=== PATIENT | female | born 1975 | race Caucasian/White ===

== ENCOUNTER → 2020-07-13 | Day surgery (SDC) | payer OTHER ==
--- NOTE | 2020-07-14 16:14 | PATH ---
Surgical Pathology Report [facility] Rec. #: [id number] /Age/Gender: 1975 (Age: 45) / F Account: [id number] Location: [facility] Taken: 07/13/2020 Received: 07/13/2020 Reported: 07/14/2020 Physicians: Reji Garcia M.D. Specimen(s) Received A: RIGHT BREAST WITH CALCIFICATIONS B: RIGHT BREAST WITHOUT CALCIFICATIONS Clinical History Non-palpable lesion Mammographic findings: Microcalcification, suspicious Final Diagnosis A. BREAST, RIGHT, WITH CALCIFICATIONS, STEREOTACTIC BIOPSY: DUCTAL CARCINOMA IN SITU (DCIS), PAPILLARY, MICROPAPILLARY AND FLAT TYPE, INTERMEDIATE NUCLEAR GRADE WITH MODERATE NECROSIS AND ASSOCIATED CALCIFICATIONS. B. BREAST, RIGHT, WITHOUT CALCIFICATIONS, STEREOTACTIC BIOPSY: DUCTAL CARCINOMA IN SITU (DCIS), MICROPAPILLARY AND FLAT TYPE, INTERMEDIATE NUCLEAR GRADE WITH ASSOCIATED CALCIFICATIONS. Results of ER and CA studies performed on this specimen (block A)) at [facility] are as follows: ER (clone [id number] mouse monoclonal antibody by [employer]): _X_ Positive: > 90 % nuclear staining with strong intensity PgR (clone16 mouse monoclonal antibody by [employer]): _X_ Positive: ~50 % nuclear staining with moderate to strong intensity Positive and negative controls (internal if applicable) show appropriate results. Formalin fixation and cold ischemic times are within current ASCO/CAP recommendations for ER, CA and Her2 testing. Electronically Signed Kisha Juarez M.D. Gross Description A. Received in formalin labeled "right breast with calcifications," is a 2.2 x 2.2 with 0.2 cm aggregate of multiple pryor-yellow, irregular to cylindrical portions of fibroadipose tissue. The formalin is filtered and the specimen is entirely submitted in one cassette. B. Received in formalin labeled "right breast without calcifications," is a 1.9 x 1.5 x 0.2 cm aggregate of multiple pryor-yellow, irregular to cylindrical portions of fibroadipose tissue. The formalin is filtered and the specimen is entirely submitted in one cassette. Time to formalin fixation: 5 minutes Total formalin fixation time: Approximately 6 hours. /07/13/2020 saudi/07/13/2020
== END | disposition home or self-care (01) ==
LOC: FMAMMOTONE 10:46
PROVIDERS: ATTEND Family Medicine
PROC: 0HBT3ZX Excision of Right Breast, Percutaneous Approach, Diagnostic (ICD-10-PCS; principal; 2020-07-13)
DX: D05.11 Intraductal carcinoma in situ of right breast (principal); N64.89 Other specified disorders of breast; R92.1 Mammographic calcification found on diagnostic imaging of breast
CPT/HCPCS: 19081; 76098-TC-FY; 87899; 88305-TC; 88342-TC; A4648